=== PATIENT | female | born 1985 | race Caucasian/White ===

== ENCOUNTER 2023-02-14 13:05 | Outpatient (CLI) | payer OTHER, SELFPAY | END 2023-02-14 13:06 | disposition home or self-care (01) | LOC: FRMREF 13:07 | PROVIDERS: PCP Family Medicine; Visit Provider Obstetrics & Gynecology | DX: R63.5 Abnormal weight gain (principal); R14.0 Abdominal distension (gaseous); R60.9 Edema, unspecified | CPT/HCPCS: 84443 ==

== ENCOUNTER 2024-05-08 10:10 | Outpatient (CLI) | payer OTHER, SELFPAY ==
[2024-05-10 08:27] LABS: HPV Source Cervical; HPV, High Risk by TMA Not Detected
== END 2024-05-08 10:11 | disposition home or self-care (01) ==
PROVIDERS: PCP Emergency Medicine; Visit Provider Emergency Medicine
DX: Z00.00 Encounter for general adult medical examination without abnormal findings (principal); Z11.51 Encounter for screening for human papillomavirus (HPV); Z12.4 Encounter for screening for malignant neoplasm of cervix; Z13.6 Encounter for screening for cardiovascular disorders; Z13.1 Encounter for screening for diabetes mellitus
CPT/HCPCS: 80061; 82947; 87624; 87625; 88141; 88142